=== PATIENT | male | born 1990 | race Caucasian/White ===

== ENCOUNTER 2024-06-24 21:37 | Emergency (ER) | payer OTHER, SELFPAY ==
[2024-06-24] MEDS ORDERED: ACETAMINOPHEN 500 MG TAB ONE (21:46)
[2024-06-24] MEDS ORDERED: IBUPROFEN 400 MG TAB ONE (21:47)
--- NOTE | 2024-06-24 23:03 | ER ---
Nurse's Notes [facility] Name: Cirilo Goodwin Age: 34 yrs Sex: Male : 1990 Arrival Date: 06/24/2024 Time: 21:37 Bed 12 Private MD: Diagnosis: Sprain of ankle-right Presentation: 06/24 21:43 Chief complaint: Patient states: TWISTED RIGHT ANKLE AT 2PM TODAY. PAIN HASN'T GOTTEN br2 ANY BETTER. Coronavirus screen: Client denies travel out of the [place] in the last 14 days. Ebola Screen: Patient denies exposure to infectious person. Initial Sepsis Screen: Does the patient meet any 2 criteria? No. Patient's initial sepsis screen is negative. Does the patient have a suspected source of infection? No. Patient's initial sepsis screen is negative. Risk Assessment: Do you want to hurt yourself or someone else? Patient reports no desire to harm self or others. Onset of symptoms was June 24, 2024 at 14:00. 21:43 Method Of Arrival: EMS: [facility] br2 21:43 Acuity: GERALD 4 br2 Triage Assessment: 21:45 General: Appears in no apparent distress. comfortable, Behavior is calm, cooperative. br2 Pain: Complains of pain in right ankle Pain currently is 7 out of 10 on a pain scale. Musculoskeletal: Capillary refill < 3 seconds, Range of motion: limited in right ankle Swelling present in right ankle. Injury Description: MISSED ONE STEP, TWISTED ANKLE. Historical: - Allergies: 21:45 No Known Allergies; br2 - PMHx: 21:45 None; br2 - Immunization history:: Adult Immunizations not up to date. - Infectious Disease History:: Denies. - Social history:: Smoking status: Patient reports the use of cigarette tobacco products, smokes one-half pack cigarettes per day, Patient uses alcohol, on a daily basis. Patient/guardian denies using street drugs. Screenin:43 [facility] ED Fall Risk Assessment (Adult) History of falling in the last 3 months, br2 including since admission Yes- single mechanical fall (1 pt) Confusion or Disorientation No (0 pts) Intoxicated or Sedated No (0 pts) Impaired Gait No (0 pts) Mobility Assist Device Used No (0 pt) Altered Elimination No (0 pt) Score/Fall Risk Level 0 - 2 = Low Risk Oriented to surroundings. Abuse screen: Denies threats or abuse. Denies injuries from another. Nutritional screening: No deficits noted. Tuberculosis screening: No symptoms or risk factors identified. Assessment: 06/25 05:21 Reassessment: SEE TRIAGE ASSESSMENT. br2 Vital Signs: 06/24 21:43 BP 128 / 75; Pulse 81; Resp 18; Temp 97.3(TE); Pulse Ox 100% on R/A; Weight 108.86 kg; br2 Height 6 ft. 2 in. ; Pain 7/10; 23:20 BP 121 / 83; Pulse 72; Resp 18; Temp 97.1(TE); Pulse Ox 100% on R/A; Pain 4/10; br2 21:43 Body Mass Index 30.81 (108.86 kg, 187.96 cm) br2 21:43 Pain Scale: Adult br2 23:20 Pain Scale: Adult br2 ED Course: 21:43 Patient arrived in ED. br2 21:43 Isaura Gomez, RN is Primary Nurse. br2 21:43 Patient has correct armband on for positive identification. Bed in low position. Call br2 light in reach. Side rails up X 1. Provided Education on: PLAN OF CARE. 21:45 Triage completed. br2 21:45 Arm band placed on. br2 21:[address] PA is PHCP. cp 21:46 Roberto Garner MD is Attending Physician. cp 22:50 XRAY Ankle RIGHT 3 view In Process Unspecified. EDMS 23:03 Gabe Napier MD is Referral Physician. cp 23:21 No provider procedures requiring assistance completed. Patient did not have IV access br2 during this emergency room visit. 23:21 Crutch training done. Brandt wrap to right ankle. br2 Administered Medications: 22:01 Drug: Acetaminophen PO 1000 mg PO once Route: PO; br2 22:30 Follow up: Response: No adverse reaction; Pain is decreased br2 22:02 Drug: Ibuprofen PO 800 mg PO once Route: PO; br2 22:30 Follow up: Response: No adverse reaction; Pain is decreased br2 Outcome: 23:03 Discharge ordered by . cp 23:21 Discharged to home via wheelchair, br2 23:21 Condition: improved 23:21 Discharge instructions given to patient, Instructed on discharge instructions, follow up and referral plans. Demonstrated understanding of instructions, follow-up care, medications, Prescriptions given X 1 23:27 Patient left the ED. br2 Signatures: Dispatcher [employer] EDMS Denton Lane PA PA cp Riddle, Belinda RN RN br2 Corrections: (The following items were deleted from the chart) 06/25 05:22 05:21 No provider procedures requiring assistance completed. br2 br2 05:22 05:21 Patient did not have IV access during this emergency room visit. br2 br2
--- NOTE | 2024-06-24 23:03 | EDPHYS ---
Physician Documentation [facility] Name: Cirilo Goodwin Age: 34 yrs Sex: Male : 1990 Arrival Date: 06/24/2024 Time: 21:37 Bed 12 Private MD: ED Physician Roberto Garner HPI: 06/24 22:00 This 34 yrs old Male presents to ER via EMS with complaints of Ankle Injury. cp 22:00 The patient presents with an injury, pain, that is acute, swelling, tenderness. The cp complaints affect the right ankle. 22:00 Onset: The symptoms/episode began/occurred today, about 1400 after missing step. cp Associated signs and symptoms: The patient has no apparent associated signs or symptoms. Patient presents via EMS with c/o right ankle injury and pain. Patient reports he has not taken any meds for pain. Historical: - Allergies: 21:45 No Known Allergies; br2 - PMHx: 21:45 None; br2 - Immunization history:: Adult Immunizations not up to date. - Infectious Disease History:: Denies. - Social history:: Smoking status: Patient reports the use of cigarette tobacco products, smokes one-half pack cigarettes per day, Patient uses alcohol, on a daily basis. Patient/guardian denies using street drugs. ROS: 22:05 MS/extremity: Positive for pain, swelling, tenderness, of the right ankle, Negative for cp decreased range of motion, deformity, paresthesias, 22:05 Constitutional: Negative for body aches, chills, fever, poor PO intake, cp 22:05 Neck: Negative for pain with movement, pain at rest, 22:05 Back: Negative for pain at rest, pain with movement, 22:05 All other systems are negative, Exam: 22:10 Constitutional: The patient appears in no acute distress, alert, awake, non-toxic, well cp developed, well nourished, 22:10 Head/Face: Normocephalic, atraumatic. cp 22:10 Chest/axilla: Inspection: normal, 22:10 Cardiovascular: Rate: normal, Pulses: Pulses are 2+ in right dorsalis pedis artery. Edema: is not appreciated, 22:10 Respiratory: the patient does not display signs of respiratory distress, Respirations: normal, no use of accessory muscles, no retractions, labored breathing, is not present, 22:10 Abdomen/GI: Inspection: abdomen appears normal, 22:10 Back: pain, is absent, ROM is normal, 22:10 Musculoskeletal/extremity: Extremities: noted in the right ankle: lateral malleolus swelling, pain and tenderness. Achilles tendon palpated and intact. no pain to lateral foot, Vital Signs: 21:43 BP 128 / 75; Pulse 81; Resp 18; Temp 97.3(TE); Pulse Ox 100% on R/A; Weight 108.86 kg; br2 Height 6 ft. 2 in. ; Pain 7/10; 23:20 BP 121 / 83; Pulse 72; Resp 18; Temp 97.1(TE); Pulse Ox 100% on R/A; Pain 4/10; br2 21:43 Body Mass Index 30.81 (108.86 kg, 187.96 cm) br2 21:43 Pain Scale: Adult br2 23:20 Pain Scale: Adult br2 MDM: 21:46 Medical Screening Exam initiated cp 23:02 Independent interpretation of the following test(s) in the Emergency Department X-Ray: cp My interpretation is images of right ankle negative for fracture. 23:03 Data reviewed: vital signs, nurses notes, radiologic studies, plain films, and as a cp result, I will discharge patient. 23:03 Differential diagnosis: fracture, sprain, dislocation, Achilles rupture, foot fracture. cp I considered the following discharge prescriptions or medication management in the emergency department Medications were administered in the Emergency Department. See MAR. Counseling: I had a detailed discussion with the patient and/or guardian regarding the historical points, exam findings, and any diagnostic results supporting the discharge/admit diagnosis, radiology results. Response to treatment: the patient's symptoms have mildly improved after treatment, and as a result, I will discharge patient. 06/24 21:47 Order name: XRAY Ankle RIGHT 3 view cp 06/24 21:47 Order name: Ice pack; Complete Time: 22:02 cp 06/24 23:02 Order name: Brandt wrap-joint; Complete Time: : cp 06/24 23:02 Order name: Aircast Ankle Splint; Complete Time: 05:23 cp 06/24 23:02 Order name: Crutches; Complete Time: : cp Administered Medications: 22:01 Drug: Acetaminophen PO 1000 mg PO once Route: PO; br2 22:30 Follow up: Response: No adverse reaction; Pain is decreased br2 22:02 Drug: Ibuprofen PO 800 mg PO once Route: PO; br2 22:30 Follow up: Response: No adverse reaction; Pain is decreased br2 Disposition: 23:30 Co-signature as Attending Physician, Roberto Garner MD I reviewed the patient's care rt provided by the Advanced Practice Provider and agree with the diagnosis and treatment plan. 06/25 18:25 Chart complete. cp Disposition Summary: 06/24/24 23:03 Discharge Ordered Notes: Location: Home cp Problem: new cp Symptoms: have improved cp Condition: Stable cp Diagnosis - Sprain of ankle - right cp Followup: cp - With: Gabe Napier MD - When: 5 - 6 days - Reason: Worsening of condition Discharge Instructions: - Discharge Summary Sheet cp - Ankle Sprain cp - RICE Therapy for Routine Care of Injuries cp Forms: - Medication Reconciliation Form cp - Antibiotic Education cp - Prescription Opioid Use cp - Patient Portal Instructions cp - Leadership Thank You Letter cp Prescriptions: - Anaprox DS 550 mg Oral Tablet - take 1 tablet ORAL route every 12 hours As needed; 20 tablet; Refills: 0, cp Product Selection Permitted Signatures: Dispatcher [employer] EDMS Denton Lane PA PA cp Roberto Garner MD MD rt Isaura Gomez RN RN br2 Corrections: (The following items were deleted from the chart) 18:06/24 22:00 Onset: The symptoms/episode began/occurred today, about 1400 after stepping cp off stepstool, cp 06/25 18:20 06/24 22:00 Patient presents via EMS with c/o right ankle injury and pain. cp cp
[2024-06-25 01:25] VITALS: BP 128/75; TEMP 97.3; O2SAT 100
--- NOTE | 2024-06-25 05:48 | RAD REPORT ---
EXAM DESCRIPTION: Ankle Right 3 View CLINICAL HISTORY: 34 years,Male,PAIN COMPARISON: None. TECHNIQUE: Three views of the right ankle. FINDINGS: No acute fractures or dislocations are identified. No osseous destructive lesions. IMPRESSION: No acute fracture is identified. Electronically signed by: Rony Aguilar MD 06/24/2024 11:20 PM CDT RP Due to temporary technical issues with the PACS[employer] reporting system, reports are being honey d by the in-house radiologist without review as a courtesy to ensure prompt reporting the interpreting radiologist is fully responsible for the content of the report. Transcribed Date/Time: 06/25/2024 5:48 AM
== END 2024-06-24 23:27 | disposition home or self-care (01) ==
LOC: ER 21:37
DX: S93.401A Sprain of unspecified ligament of right ankle, initial encounter (principal); F17.210 Nicotine dependence, cigarettes, uncomplicated
CPT/HCPCS: 99284